=== PATIENT | female | born 1985 | race African-American/Black ===

== ENCOUNTER 2018-08-19 15:15 | Emergency (ER) | payer MEDICAID ==
[~2018-08-19] VITALS: Ht 167.6 cm; Wt 59.0 kg
[2018-08-19 15:58] VITALS: BP 131/67
== END 2018-08-19 17:17 | disposition home or self-care (01) ==
LOC: ER 15:15
DX: O90.0 Disruption of cesarean delivery wound (principal); Z88.0 Allergy status to penicillin; Z98.890 Other specified postprocedural states
CPT/HCPCS: 99283

== ENCOUNTER 2018-08-20 09:30 | Emergency (ER) | payer MEDICAID ==
[~2018-08-20] VITALS: Ht 172.7 cm; Wt 81.0 kg
[2018-08-20 09:43] VITALS: BP 146/84
== END 2018-08-20 14:58 | disposition left against medical advice (07) ==
LOC: ER 09:52
DX: Z53.21 Procedure and treatment not carried out due to patient leaving prior to being seen by health care provider (principal)

== ENCOUNTER 2020-12-25 21:21 | Observation (INO) | payer MEDICAID ==
[~2020-12-25] VITALS: Ht 172.7 cm; Wt 88.5 kg
[2020-12-25] MEDS ORDERED: FERR325T6 PO (22:17)
[2020-12-25] MEDS ORDERED: PREN1TAB78 PO (22:17)
== END 2020-12-25 23:15 | disposition home or self-care (01) ==
LOC: 8EST NSY 21:21 → 8 EST A/PP 21:34
PROVIDERS: ADMIT Specialist; ATTEND Specialist
DX: O62.9 Abnormality of forces of labor, unspecified (principal); Z3A.21 21 weeks gestation of pregnancy
CPT/HCPCS: 76805; 76817; G0378; 99281

== ENCOUNTER 2021-05-01 20:36 | Inpatient (IN) | payer MEDICAID ==
[~2021-05-01] VITALS: Ht 172.7 cm; Wt 92.1 kg
[~2021-05-01 20:36] MED LIST: FERR325T6 PO; PREN1TAB78 PO
[2021-05-01] MEDS ORDERED: LACTATED RINGERS 2,000 ML IV ONE (21:30)
[2021-05-01] MEDS ORDERED: NALOXONE HCL 0.4 MG/ML 1ML VIAL IM PRN (21:30)
[2021-05-01] MEDS ORDERED: DEXT 5%/LR + PITOCIN 20UNITS/L 1,000 ML IV SCH (21:30)
[2021-05-01] MEDS ORDERED: CLINDAMYCIN 900 MG in DEXTROSE 5% WATER 50 ML IV SCH (21:30)
[2021-05-01] MEDS ORDERED: MISOPROSTOL 100MCG TABLET VG SCH (21:30)
[2021-05-01] MEDS ORDERED: METHYLERGONOVINE MALEATE 0.2 MG/ML IM PRN (21:30)
[2021-05-01] MEDS ORDERED: CARBOPROST TROMETHAMINE 250 MCG/ML AMPUL IM PRN (21:30)
[2021-05-01] MEDS ORDERED: CLINDAMYCIN 900 MG PREMIX 50 ML IV SCH (21:45)
[2021-05-01] MEDS ORDERED: CLINDAMYCIN IN 0.9 % SOD CHLOR 50 ML IV NR (22:00)
[2021-05-01] MEDS ORDERED: CITRIC ACID/SODIUM CITRATE SOLN 30ML UDC PO NR (22:00)
[2021-05-01 22:01] LABS: CLARITY URINE CLEAR (CLEAR); COLOR URINE YELLOW (YELLOW); KETONES URINE 1+ (NEGATIVE); LEUKOCYTE ESTERASE URINE NEGATIVE (NEGATIVE); NITRITE URINE NEGATIVE (NEGATIVE); OCCULT BLOOD URINE NEGATIVE (NEGATIVE); PROTEIN URINE TRACE (NEGATIVE)
[2021-05-01 22:05] LABS: BASOPHILS % 0.4 % (0.0-2.0); EOSINOPHILS % 1.5 % (0.0-5.0); HEMATOCRIT. 30.8 % (36.0-48.0); HEMOGLOBIN. 10.7 g/dL (12.0-16.0); LYMPHOCYTES % 17.9 % (20.0-50.0); MEAN CORPUSCULAR HEMOGLOBIN 32.8 pg (28.0-32.0); MEAN CORPUSCULAR VOLUME 94.9 fL (81.0-99.0); MEAN PLATELET VOLUME 7.9 fl (7.4-10.4); MONOCYTES % 12.3 % (2.0-8.0); NEUTROPHILS % 67.9 % (40.0-76.0); PLATELET 235 x1000/uL (130-400); RED BLOOD CELL COUNT 3.25 mill/uL (4.2-5.4); RED CELL DISTRIBUTION WIDTH 12.6 % (11.6-14.6)
[2021-05-01 22:14] LABS: INR 0.9; PARTIAL THROMBOPLASTIN TIME 26.2 sec (23.4-31.0); PROTHROMBIN TIME 10.1 sec (9.6-11.0)
[2021-05-01 22:28] LABS: *AMPHETAMINES SCREEN URINE NEGATIVE (NEGATIVE); *BARBITURATES SCREEN URINE NEGATIVE (NEGATIVE); *BENZODIAZEPINES SCREEN URINE NEGATIVE (NEGATIVE); *COCAINE SCREEN URINE NEGATIVE (NEGATIVE)
[2021-05-01 22:29] LABS: CANNABINOID URINE SCREEN NEGATIVE (NEGATIVE); METHADONE URINE SCREEN NEGATIVE (NEGATIVE); OPIATES URINE SCREEN NEGATIVE (NEGATIVE); PHENCYCLIDINE URINE SCREEN NEGATIVE (NEGATIVE)
[2021-05-01] MEDS ORDERED: ONDANSETRON HCL 4MG/2ML INJ ONE (22:33)
[2021-05-01] MEDS ORDERED: PHENYLEPHRINE HCL 10 MG/ML 1ML (IV VIAL) IV ONE (22:33)
[2021-05-01] MEDS ORDERED: FENTANYL CITRATE/PF 50MCG/ML 2ML VIAL ONE (22:33)
[2021-05-01] MEDS ORDERED: MORPHINE SULFATE/PF 1MG/ML 10ML AMP ONE (22:33)
[2021-05-01] MEDS ORDERED: OXYTOCIN 10 UNITS/ML 1ML ONE (22:33)
[2021-05-01] MEDS ORDERED: DIPHENHYDRAMINE 50MG/ML VIAL ONE (22:33)
[2021-05-01] MEDS ORDERED: EPHEDRINE SULFATE 50MG/ML VIAL ONE (22:33)
[2021-05-01 22:51] LABS: HEPATITIS B SURFACE ANTIGEN NEGATIVE
[2021-05-01] MEDS: LACTATED RINGERS 1,000 ML IV SCH (23:46)
[2021-05-02] MEDS: LACTATED RINGERS 1,000 ML IV SCH (01:02)
[2021-05-02] MEDS ORDERED: KETOROLAC 60MG/2ML VIAL IM ONE (02:25)
[2021-05-02] MEDS ORDERED: DIPHENHYDRAMINE 25MG CAPSULE PO PRN (03:00)
[2021-05-02] MEDS ORDERED: BUTORPHANOL TARTRATE 2 MG/ML VIAL IV PRN (03:00)
[2021-05-02] MEDS ORDERED: DIPHENHYDRAMINE 50MG/ML VIAL IV PRN (03:00)
[2021-05-02] MEDS ORDERED: BISACODYL 10MG SUPP PR PRN (03:00)
[2021-05-02] MEDS ORDERED: DEXT 5%/LR + PITOCIN 20UNITS/L 1,000 ML IV SCH (03:00)
[2021-05-02] MEDS ORDERED: ONDANSETRON HCL 4MG/2ML INJ IV PRN (03:00)
[2021-05-02] MEDS ORDERED: IBUPROFEN 400MG TABLET PO PRN (03:00)
[2021-05-02] MEDS ORDERED: NALOXONE HCL 0.4 MG/ML 1ML VIAL IV PRN (03:00)
[2021-05-02 05:30] VITALS: BP 107/63
[2021-05-02 06:30] VITALS: BP 116/52
[2021-05-02 08:00] VITALS: BP 113/51
[2021-05-02] MEDS: KETOROLAC 30MG/ML VIAL IV SCH ×2 (15:07→21:20)
[2021-05-02 16:00] VITALS: BP 123/55
[2021-05-02 20:00] VITALS: BP 111/64
[2021-05-02] MEDS: DOCUSATE SODIUM 100MG CAPSULE PO SCH (21:20)
[2021-05-02] MEDS: MAGNESIUM/ALUMINUM HYDROXIDE/SIMETHICONE 30ML UDC PO SCH (21:20)
[2021-05-02] MEDS: SIMETHICONE 80MG TABLET CHEW PO SCH (21:20)
[2021-05-02] MEDS: LANOLIN OINT 7GM TUBE TOP PRN (22:02)
[2021-05-02] MEDS ORDERED: HYDROCODONE/ACETAMINOPHEN 5/325MG TABLET PO PRN (23:00)
[2021-05-03 00:12] VITALS: BP 110/62
[2021-05-03 05:00] VITALS: BP 130/71
[2021-05-03] MEDS: MAGNESIUM/ALUMINUM HYDROXIDE/SIMETHICONE 30ML UDC PO SCH ×2 (07:30→20:53)
[2021-05-03 08:00] VITALS: BP 112/67
[2021-05-03 09:05] LABS: BASOPHILS % 0.2 % (0.0-2.0); HEMATOCRIT. 27.9 % (36.0-48.0); HEMOGLOBIN. 9.8 g/dL (12.0-16.0); LYMPHOCYTES % 13.2 % (20.0-50.0); MEAN CORPUSCULAR HEMOGLOBIN 33.2 pg (28.0-32.0); MEAN PLATELET VOLUME 7.9 fl (7.4-10.4); MONOCYTES % 12.8 % (2.0-8.0); NEUTROPHILS % 72.8 % (40.0-76.0); PLATELET 222 x1000/uL (130-400); RED BLOOD CELL COUNT 2.94 mill/uL (4.2-5.4); RED CELL DISTRIBUTION WIDTH 12.8 % (11.6-14.6)
[2021-05-03] MEDS: SIMETHICONE 80MG TABLET CHEW PO SCH ×3 (10:57→20:54)
[2021-05-03] MEDS: PRENATAL VIT/FE FUMARATE/FA TABLET PO SCH (10:57)
[2021-05-03] MEDS: IBUPROFEN 800MG TABLET PO PRN ×2 (10:57→18:07)
[2021-05-03] MEDS: FERROUS SULFATE 325MG TABLET PO SCH ×2 (10:57→18:07)
[2021-05-03 15:23] VITALS: BP 112/66
[2021-05-03 19:30] VITALS: BP 109/53
[2021-05-03] MEDS: DOCUSATE SODIUM 100MG CAPSULE PO SCH (20:53)
[2021-05-04] MEDS: IBUPROFEN 800MG TABLET PO PRN ×3 (01:14→20:45)
[2021-05-04 04:00] VITALS: BP 109/53
[2021-05-04 08:31] VITALS: BP 111/53
[2021-05-04] MEDS: FERROUS SULFATE 325MG TABLET PO SCH ×3 (08:48→17:39)
[2021-05-04] MEDS: SIMETHICONE 80MG TABLET CHEW PO SCH ×4 (08:48→20:45)
[2021-05-04] MEDS: MAGNESIUM/ALUMINUM HYDROXIDE/SIMETHICONE 30ML UDC PO SCH ×4 (08:48→20:46)
[2021-05-04] MEDS: PRENATAL VIT/FE FUMARATE/FA TABLET PO SCH (08:49)
[2021-05-04 16:04] VITALS: BP 116/62
[2021-05-04 20:00] VITALS: BP 120/71
[2021-05-04] MEDS: DOCUSATE SODIUM 100MG CAPSULE PO SCH (20:45)
[2021-05-05 04:00] VITALS: BP 123/62
[2021-05-05] MEDS ORDERED: IBUP-2030 PO (05:24)
[2021-05-05 08:00] VITALS: BP 125/69
[2021-05-05] MEDS: LANOLIN OINT 7GM TUBE TOP PRN (08:07)
[2021-05-05] MEDS: MAGNESIUM/ALUMINUM HYDROXIDE/SIMETHICONE 30ML UDC PO SCH (08:07)
[2021-05-05] MEDS: PRENATAL VIT/FE FUMARATE/FA TABLET PO SCH (08:08)
[2021-05-05] MEDS: FERROUS SULFATE 325MG TABLET PO SCH (08:08)
[2021-05-05] MEDS: SIMETHICONE 80MG TABLET CHEW PO SCH (08:08)
== END 2021-05-05 12:25 | disposition home or self-care (01) | DRG 540 ==
LOC: OBSVTOIN 20:36 → 8 EST LDRP 20:36 → 8EST 05-02 05:30
PROVIDERS: ADMIT Specialist; ATTEND Specialist
PROC: 10D00Z1 Extraction of Products of Conception, Low, Open Approach (ICD-10-PCS; principal; 2021-05-02)
DX: O34.211 Maternal care for low transverse scar from previous cesarean delivery (principal); D25.9 Leiomyoma of uterus, unspecified; O34.13 Maternal care for benign tumor of corpus uteri, third trimester; O76 Abnormality in fetal heart rate and rhythm complicating labor and delivery; Z37.0 Single live birth; D64.9 Anemia, unspecified; O99.02 Anemia complicating childbirth; Z3A.39 39 weeks gestation of pregnancy; Z88.0 Allergy status to penicillin
CPT/HCPCS: 36415; 80305; 81003; 85025; 86592; 86593; 86703; 86762; 86780; 86850; 86900; 86920; 87340; 87426; 88307; 99281; G0378; J1200; J1885; J2274; J2370; J2405; J2590; J3010; J3490; J7120

== ENCOUNTER 2024-09-18 09:39 | Emergency (ER) | payer MEDICAID, OTHER ==
[~2024-09-18] VITALS: Ht 172.7 cm; Wt 81.8 kg
[~2024-09-18 09:39] MED LIST changes: +IBUP-2030 PO
[2024-09-18 09:49] VITALS: O2SAT 100
[2024-09-18 10:25] LABS: HEMATOCRIT. 37.5 % (36.0-48.0); HEMOGLOBIN. 12.5 g/dL (12.0-16.0); MEAN CORPUSCULAR HEMOGLOBIN 31.6 pg (28.0-32.0); MEAN CORPUSCULAR HGB CONC 33.3 g/dL (31.0-37.0); MEAN PLATELET VOLUME 7.5 fl (7.4-10.4); PLATELET 212 x1000/uL (130-400); RED BLOOD CELL COUNT 3.94 mill/uL (4.2-5.4); RED CELL DISTRIBUTION WIDTH 12.1 % (11.6-14.6); WHITE BLOOD COUNT 2.5 x1000/uL (4.5-11.0)
[2024-09-18 10:32] LABS: CHLORIDE 103 mEq/L (98-107); POTASSIUM 3.7 mEq/L (3.5-5.1); SODIUM 138 mEq/L (136-145)
[2024-09-18 10:33] LABS: CARBON DIOXIDE 26 mEq/L (21-32)
[2024-09-18 10:39] LABS: GLUCOSE 91 mg/dL (70-105); UREA NITROGEN BLOOD 8 mg/dL (9-23)
[2024-09-18 10:56] LABS: DIFFERENTIAL COMMENT 1
[2024-09-18 11:08] LABS: TROPONIN I HIGH SENSITIVITY < 4 ng/L (3.0-34)
[2024-09-18 13:24] LABS: PLATELET ESTIMATE NORMAL
[2024-09-18] MEDS: MAGNESIUM GLUCONATE 500MG TABLET PO SCH (14:47)
[2024-09-18 14:48] VITALS: BP 123/69; PULSE 62; RESP 18; TEMP 36.7; O2SAT 100
== END 2024-09-18 14:49 | disposition home or self-care (01) ==
LOC: ER 09:39
DX: R07.89 Other chest pain (principal); E83.42 Hypomagnesemia; D72.819 Decreased white blood cell count, unspecified; Z98.890 Other specified postprocedural states; Z79.899 Other long term (current) drug therapy; Z88.0 Allergy status to penicillin
CPT/HCPCS: 36415; 71045; 80048; 83735; 84484; 85025; 93005; 99285